=== PATIENT | female | born 1940 | race African-American/Black ===

== ENCOUNTER 2017-09-16 10:42 | Inpatient (IN) | payer MEDICARE, OTHER ==
[~2017-09-16] VITALS: Ht 157.5 cm; Wt 48.8 kg
[2017-09-16] VITALS (8 sets, daily range): BP systolic 114–144; BP diastolic 65–85
[~2017-09-16 10:42] MED LIST: FAMO40TA7 PO
[2017-09-16 12:10] LABS: CLARITY URINE TURBID (CLEAR); COLOR URINE YELLOW (YELLOW); KETONES URINE NEGATIVE (NEGATIVE); LEUKOCYTE ESTERASE URINE 3+ (NEGATIVE); NITRITE URINE POSITIVE (NEGATIVE); OCCULT BLOOD URINE 2+ (NEGATIVE); PH URINE 5.5 (4.5-8.0); PROTEIN URINE 1+ (NEGATIVE); SPECIFIC GRAVITY URINE 1.019 (1.005-1.030)
[2017-09-16 12:13] LABS: BASOPHILS % 0.2 % (0.0-2.0); EOSINOPHILS % 0.3 % (0.0-5.0); HEMATOCRIT. 21.2 % (36.0-48.0); MEAN CORPUSCULAR HEMOGLOBIN 26.7 pg (28.0-32.0); MEAN CORPUSCULAR VOLUME 80.6 fL (81.0-99.0); MEAN PLATELET VOLUME 7.4 fl (7.4-10.4); MONOCYTES % 6.7 % (2.0-8.0); NEUTROPHILS % 83.8 % (40.0-76.0); PLATELET 355 x1000/uL (130-400); RED BLOOD CELL COUNT 2.63 mill/uL (4.2-5.4); RED CELL DISTRIBUTION WIDTH 19.4 % (11.6-14.6)
[2017-09-16 12:14] LABS: CHLORIDE 108 mEq/L (98-107)
[2017-09-16] MEDS ORDERED: POTASSIUM CHLORIDE 20MEQ TABLET SR PO ONE (13:15)
[2017-09-16] MEDS ORDERED: CEFTRIAXONE 1 G PREMIX 50 ML IV ONE (13:15)
[2017-09-16] MEDS ORDERED: HYDROCODONE/ACETAMINOPHEN 5/325MG TABLET PO PRN (15:30)
[2017-09-16] MEDS ORDERED: CLONIDINE 0.1MG TABLET PO PRN (15:30)
[2017-09-16] MEDS ORDERED: DIPHENHYDRAMINE 50MG/ML VIAL IV PRN (15:30)
[2017-09-16] MEDS ORDERED: ONDANSETRON HCL 4MG/2ML VIAL IV PRN (15:30)
[2017-09-16] MEDS ORDERED: IPRATROPIUM/ALBUTEROL 0.5-3(2.5)MG/3ML NEB INH PRN (15:30)
[2017-09-16] MEDS ORDERED: ACETAMINOPHEN 325MG TABLET PO PRN (15:30)
[2017-09-16 15:57] LABS: PHOSPHORUS 2.1 mg/dL (2.5-4.9)
[2017-09-16] MEDS ORDERED: POTASSIUM CHLORIDE 20MEQ TABLET SR PO NR (16:14)
[2017-09-16] MEDS ORDERED: DORZ10DR9 LEFTEYE (18:51)
[2017-09-16] MEDS ORDERED: OMEP20TA2 PO (18:51)
[2017-09-16] MEDS ORDERED: KETO5DRO80 EACHEYE (18:51)
[2017-09-16] MEDS ORDERED: LEVOFLOXACIN 500MG PREMIX 100 ML IV NR (19:00)
[2017-09-16] MEDS ORDERED: NICOTINE 21MG PATCH TD NR (19:00)
[2017-09-16] MEDS ORDERED: POTASSIUM PHOS,M-BASIC-D-BASIC 15 MMOL in DEXT 5% WATER 245 ML IV NR (19:30)
[2017-09-16] MEDS: DORZOLAM/TIMOLOL 2.23/0.68% OPHTH DROPS 10ML LEFTEYE SCH (21:01)
[2017-09-16] MEDS: KETOROLAC TROMETHAMINE 0.4% OPHTH 5ML EACHEYE SCH (21:03)
[2017-09-16 23:10] LABS: HEMATOCRIT 24.9 % (36.0-48.0); HEMOGLOBIN 8.2 g/dL (12.0-16.0)
[2017-09-16 23:18] LABS: INR 1.1; PROTHROMBIN TIME 11.6 sec (9.4-11.6)
[2017-09-17] VITALS: BP 116/65
[2017-09-17 04:00] VITALS: BP 115/69
[2017-09-17] MEDS: OMEPRAZOLE 20MG CAPSULE EXTENDED RELEASE PO SCH (06:18)
[2017-09-17 07:38] LABS: CHLORIDE 108 mEq/L (98-107)
[2017-09-17 07:43] VITALS: BP 125/75
[2017-09-17 07:47] LABS: HDL CHOLESTEROL 36 mg/dL (40-59); LDL CHOLESTEROL 70 mg/dL (5-100)
[2017-09-17] MEDS ORDERED: SODIUM BICARBONATE 4% (2.4MEQ) 5ML VIAL IV ONE (08:06)
[2017-09-17 08:18] LABS: BASOPHILS % 0.1 % (0.0-2.0); EOSINOPHILS % 0.5 % (0.0-5.0); HEMATOCRIT. 26.1 % (36.0-48.0); HEMOGLOBIN. 8.7 g/dL (12.0-16.0); LYMPHOCYTES % 8.1 % (20.0-50.0); MEAN CORPUSCULAR HEMOGLOBIN 27.3 pg (28.0-32.0); MEAN CORPUSCULAR VOLUME 82.1 fL (81.0-99.0); MEAN PLATELET VOLUME 7.9 fl (7.4-10.4); MONOCYTES % 5.1 % (2.0-8.0); NEUTROPHILS % 86.2 % (40.0-76.0); PLATELET 347 x1000/uL (130-400); RED BLOOD CELL COUNT 3.19 mill/uL (4.2-5.4); RED CELL DISTRIBUTION WIDTH 17.6 % (11.6-14.6)
[2017-09-17] MEDS: DORZOLAM/TIMOLOL 2.23/0.68% OPHTH DROPS 10ML LEFTEYE SCH ×2 (08:38→17:54)
[2017-09-17] MEDS: NICOTINE 21MG PATCH TD SCH ×2 (08:38→17:54)
[2017-09-17] MEDS: KETOROLAC TROMETHAMINE 0.4% OPHTH 5ML EACHEYE SCH ×2 (08:38→17:54)
[2017-09-17] MEDS: POTASSIUM CHLORIDE 20MEQ TABLET SR PO SCH (10:52)
[2017-09-17] MEDS ORDERED: LEVOFLOXACIN 250MG TABLET PO SCH (11:00)
[2017-09-17 11:43] VITALS: BP 128/80
[2017-09-17 12:57] LABS: INR 1.1; PROTHROMBIN TIME 11.9 sec (9.4-11.6)
[2017-09-17] MEDS ORDERED: CEFTRIAXONE 1 G PREMIX 50 ML IV SCH (13:00)
[2017-09-17 15:44] VITALS: BP 127/67
[2017-09-17] MEDS: LEVOFLOXACIN 250MG PREMIX 50 ML IV SCH (17:54)
[2017-09-17 20:02] VITALS: BP 115/71
[2017-09-18 00:05] VITALS: BP 109/67
[2017-09-18 04:00] VITALS: BP 113/68
[2017-09-18] MEDS: OMEPRAZOLE 20MG CAPSULE EXTENDED RELEASE PO SCH (06:30)
[2017-09-18 07:21] VITALS: BP 122/74
[2017-09-18 07:31] LABS: HEMATOCRIT. 26.2 % (36.0-48.0); HEMOGLOBIN. 8.7 g/dL (12.0-16.0); MEAN CORPUSCULAR HEMOGLOBIN 27.2 pg (28.0-32.0); MEAN CORPUSCULAR VOLUME 81.6 fL (81.0-99.0); MEAN PLATELET VOLUME 7.9 fl (7.4-10.4); PLATELET 332 x1000/uL (130-400); RED BLOOD CELL COUNT 3.21 mill/uL (4.2-5.4); RED CELL DISTRIBUTION WIDTH 18.5 % (11.6-14.6)
[2017-09-18 08:39] LABS: CHLORIDE 110 mEq/L (98-107); PHOSPHORUS 2.8 mg/dL (2.5-4.9)
[2017-09-18] MEDS: KETOROLAC TROMETHAMINE 0.4% OPHTH 5ML LEFTEYE SCH ×2 (10:03→17:33)
[2017-09-18] MEDS: POTASSIUM CHLORIDE 20MEQ TABLET SR PO SCH (10:03)
[2017-09-18] MEDS: NICOTINE 21MG PATCH TD SCH (10:04)
[2017-09-18] MEDS: DORZOLAM/TIMOLOL 2.23/0.68% OPHTH DROPS 10ML LEFTEYE SCH ×2 (10:04→17:32)
[2017-09-18 11:37] VITALS: BP 122/76
[2017-09-18 14:11] LABS: PLATELET ESTIMATE NORMAL
[2017-09-18] MEDS ORDERED: CEFTRIAXONE 1 G PREMIX 50 ML IV SCH (15:00)
[2017-09-18 16:00] VITALS: BP 126/80
[2017-09-18] MEDS: LEVOFLOXACIN 250MG PREMIX 50 ML IV SCH (17:32)
[2017-09-18 20:00] VITALS: BP 100/63
[2017-09-18] MEDS ORDERED: POTASSIUM CHLORIDE 20MEQ TABLET SR PO SCH (21:00)
[2017-09-19 00:24] VITALS: BP 119/72
[2017-09-19 04:00] VITALS: BP 128/78
[2017-09-19] MEDS: OMEPRAZOLE 20MG CAPSULE EXTENDED RELEASE PO SCH (06:30)
[2017-09-19 07:42] LABS: BASOPHILS % 0.3 % (0.0-2.0); EOSINOPHILS % 0.7 % (0.0-5.0); HEMATOCRIT. 26.7 % (36.0-48.0); HEMOGLOBIN. 8.7 g/dL (12.0-16.0); LYMPHOCYTES % 14.3 % (20.0-50.0); MEAN CORPUSCULAR HEMOGLOBIN 26.9 pg (28.0-32.0); MEAN CORPUSCULAR VOLUME 82.6 fL (81.0-99.0); MEAN PLATELET VOLUME 7.5 fl (7.4-10.4); MONOCYTES % 11.2 % (2.0-8.0); NEUTROPHILS % 73.5 % (40.0-76.0); PLATELET 346 x1000/uL (130-400); RED BLOOD CELL COUNT 3.23 mill/uL (4.2-5.4); RED CELL DISTRIBUTION WIDTH 18.7 % (11.6-14.6)
[2017-09-19] MEDS ORDERED: DIATR MEGLU/DIATRIZOATE SOLN 30ML PO SCH (08:45)
[2017-09-19 08:49] LABS: CHLORIDE 112 mEq/L (98-107)
[2017-09-19 08:54] LABS: PHOSPHORUS 2.1 mg/dL (2.5-4.9)
[2017-09-19] MEDS: NICOTINE 21MG PATCH TD SCH (09:27)
[2017-09-19] MEDS: DORZOLAM/TIMOLOL 2.23/0.68% OPHTH DROPS 10ML LEFTEYE SCH (09:28)
[2017-09-19] MEDS: KETOROLAC TROMETHAMINE 0.4% OPHTH 5ML LEFTEYE SCH (09:28)
[2017-09-19] MEDS ORDERED: SODIUM PHOS,M-BASIC-D-BASIC 15 MM in DEXT 5% WATER 245 ML IV NR (10:30)
[2017-09-19 12:00] VITALS: BP 132/81
[2017-09-19] MEDS ORDERED: CEFTRIAXONE 1 G PREMIX 50 ML IV SCH (16:00)
[2017-09-19 16:51] VITALS: BP 132/81
[2017-09-20] MEDS ORDERED: POTASSIUM CHLORIDE 20MEQ TABLET SR PO SCH (09:00)
== END 2017-09-19 17:52 | disposition home or self-care (01) | DRG 871 ==
LOC: ER 13:11 → 6WST 13:12 → EDBEDREQ 13:15 → ENRESERV 15:26 → 6WST 16:47
PROVIDERS: ADMIT Internal Medicine; ATTEND Internal Medicine
PROC: 0WB83ZX Excision of Chest Wall, Percutaneous Approach, Diagnostic (ICD-10-PCS; principal; 2017-09-16)
PROC: 30233N1 Transfusion of Nonautologous Red Blood Cells into Peripheral Vein, Percutaneous Approach (ICD-10-PCS; 2017-09-16)
DX: A41.9 Sepsis, unspecified organism (principal); E43 Unspecified severe protein-calorie malnutrition; C78.00 Secondary malignant neoplasm of unspecified lung; D68.59 Other primary thrombophilia; C79.71 Secondary malignant neoplasm of right adrenal gland; E83.39 Other disorders of phosphorus metabolism; C80.1 Malignant (primary) neoplasm, unspecified; N39.0 Urinary tract infection, site not specified; Z68.1 Body mass index [BMI] 19.9 or less, adult; F17.210 Nicotine dependence, cigarettes, uncomplicated; R22.2 Localized swelling, mass and lump, trunk; D50.9 Iron deficiency anemia, unspecified; E87.6 Hypokalemia; I10 Essential (primary) hypertension; B96.20 Unspecified Escherichia coli [E. coli] as the cause of diseases classified elsewhere; Z90.710 Acquired absence of both cervix and uterus; Z80.8 Family history of malignant neoplasm of other organs or systems; Z80.3 Family history of malignant neoplasm of breast; Z79.899 Other long term (current) drug therapy
CPT/HCPCS: 32405; 36415; 36430; 74176; 76700; 77012; 80048; 80053; 80061; 81003; 82105; 82270; 82378; 83690; 83735; 84100; 84484; 84702; 85014; 85018; 85025; 85049; 85384; 85610; 86301; 86304; 86850; 86900; 86920; 87040; 87070; 87075; 87077; 87086; 87102; 87116; 87186; 87205; 88305; 96365; 96366; 99291; J0696; J1956; J3490; J7040; J7050; J7060; J7620; P9016; Q9963

== ENCOUNTER 2017-12-17 10:20 | Inpatient (IN) | payer OTHER ==
[~2017-12-17] VITALS: Ht 157.5 cm; Wt 51.7 kg
[2017-12-17] VITALS (7 sets, daily range): BP systolic 94–131; BP diastolic 57–73
[~2017-12-17 10:20] MED LIST changes: +DORZ10DR9 LEFTEYE; +KETO5DRO80 EACHEYE; +OMEP20TA2 PO
[2017-12-17] MEDS ORDERED: SODIUM CHLORIDE 0.9% 1000ML BAG (SEPSIS BOLUS) IV ONE (10:45)
[2017-12-17 11:43] LABS: CLARITY URINE TURBID (CLEAR); COLOR URINE YELLOW (YELLOW); KETONES URINE TRACE (NEGATIVE); LEUKOCYTE ESTERASE URINE 3+ (NEGATIVE); NITRITE URINE NEGATIVE (NEGATIVE); OCCULT BLOOD URINE 3+ (NEGATIVE); PROTEIN URINE 1+ (NEGATIVE); SPECIFIC GRAVITY URINE 1.015 (1.005-1.030)
[2017-12-17 12:11] LABS: CHLORIDE 105 mEq/L (98-107)
[2017-12-17 12:16] LABS: MEAN CORPUSCULAR HEMOGLOBIN 22.3 pg (28.0-32.0); MEAN CORPUSCULAR VOLUME 70.3 fL (81.0-99.0); PLATELET 268 x1000/uL (130-400); RED BLOOD CELL COUNT 2.54 mill/uL (4.2-5.4)
[2017-12-17 12:27] LABS: HEMOGLOBIN. 5.7 g/dL (12.0-16.0)
[2017-12-17 12:28] LABS: HEMATOCRIT. 17.9 % (36.0-48.0)
[2017-12-17] MEDS ORDERED: ASPIRIN 600MG SUPP PR ONE (12:30)
[2017-12-17 12:55] LABS: NUCLEATED RED BLOOD CELLS 1 /100 WBC; PLATELET ESTIMATE NORMAL
[2017-12-17] MEDS ORDERED: PIPERACILLIN/TAZ 3.375G PREMIX 50 ML IV NR (13:12)
[2017-12-17] MEDS ORDERED: PIPERACILLIN/TAZOBACTAM 3.375GM/50ML PREMIX IV ONE (13:15)
[2017-12-17] MEDS ORDERED: PANTOPRAZOLE 80 MG in SODIUM CHLORIDE 0.9% 100 ML IV ONE ×2 (13:15→13:30)
[2017-12-17] MEDS ORDERED: PANTOPRAZOLE SODIUM 40 MG/VIAL IV ONE (13:15)
[2017-12-17] MEDS ORDERED: ONDANSETRON HCL 4MG/2ML VIAL IV PRN (15:00)
[2017-12-17] MEDS ORDERED: DOCUSATE SODIUM 100MG CAPSULE PO PRN (15:00)
[2017-12-17] MEDS ORDERED: ZOLPIDEM TARTRATE 5MG TABLET PO PRN (15:00)
[2017-12-17] MEDS ORDERED: TRAMADOL 50MG TABLET PO PRN (15:00)
[2017-12-17] MEDS ORDERED: MORPHINE SULFATE 4 MG/ML CPJ (NOT FOR IM USE) IV PRN (15:00)
[2017-12-17] MEDS ORDERED: DIPHENHYDRAMINE 50MG/ML VIAL IV PRN (15:00)
[2017-12-17] MEDS ORDERED: ACETAMINOPHEN 325MG TABLET PO PRN (15:00)
[2017-12-17] MEDS ORDERED: CLONIDINE 0.1MG TABLET PO PRN (15:00)
[2017-12-17] MEDS ORDERED: IPRATROPIUM/ALBUTEROL 0.5-3(2.5)MG/3ML NEB INH PRN (15:00)
[2017-12-17] MEDS ORDERED: MAGNESIUM/ALUMINUM HYDROXIDE/SIMETHICONE 30ML UDC PO PRN (15:00)
[2017-12-17] MEDS ORDERED: NA PHOS,M-B/NA PHOS,DI-BA ENEMA 118ML PR PRN (15:00)
[2017-12-17] MEDS ORDERED: GUAIFENESIN 200MG/10ML SUGAR FREE UDC PO PRN (15:00)
[2017-12-17] MEDS ORDERED: POTASSIUM CHLORIDE 20MEQ TABLET SR PO NR (18:00)
[2017-12-17] MEDS ORDERED: PANTOPRAZOLE 80 MG in SODIUM CHLORIDE 0.9% 100 ML IV SCH (18:00)
[2017-12-17] MEDS: DEXT 5%/0.45% NACL 1000ML 1,000 ML IV SCH (18:47)
[2017-12-17] MEDS ORDERED: LORAZEPAM 2MG/ML CPJ IV PRN (19:45)
[2017-12-17] MEDS: PANTOPRAZOLE 80 MG in SODIUM CHLORIDE 0.9% 100 ML IV SCH (19:57)
[2017-12-17] MEDS ORDERED: CEFTRIAXONE 1 G PREMIX 50 ML IV SCH (20:00)
[2017-12-17 23:57] LABS: HEMATOCRIT 30.6 % (36.0-48.0); HEMOGLOBIN 9.8 g/dL (12.0-16.0)
[2017-12-18] VITALS (11 sets, daily range): BP systolic 83–121; BP diastolic 37–72
[2017-12-18] MEDS: DEXT 5%/0.45% NACL 1000ML 1,000 ML IV SCH ×2 (04:35→14:44)
[2017-12-18] MEDS: PANTOPRAZOLE 80 MG in SODIUM CHLORIDE 0.9% 100 ML IV SCH ×2 (06:45→15:00)
[2017-12-18 06:54] LABS: CLARITY URINE CLOUDY (CLEAR); COLOR URINE YELLOW (YELLOW); KETONES URINE NEGATIVE (NEGATIVE); LEUKOCYTE ESTERASE URINE 3+ (NEGATIVE); NITRITE URINE POSITIVE (NEGATIVE); OCCULT BLOOD URINE 2+ (NEGATIVE); PROTEIN URINE 1+ (NEGATIVE); SPECIFIC GRAVITY URINE 1.016 (1.005-1.030)
[2017-12-18] MEDS ORDERED: DIGOXIN 500MCG/2ML AMP IV NR ×2 (07:53→10:21)
[2017-12-18] MEDS ORDERED: SODIUM CHLORIDE 0.9% 250 ML IV ONE (08:00)
[2017-12-18 09:44] LABS: HEMATOCRIT. 28.8 % (36.0-48.0); HEMOGLOBIN. 9.3 g/dL (12.0-16.0); MEAN CORPUSCULAR HEMOGLOBIN 24.9 pg (28.0-32.0); MEAN CORPUSCULAR VOLUME 77.7 fL (81.0-99.0); MEAN PLATELET VOLUME 8.6 fl (7.4-10.4); PLATELET 87 x1000/uL (130-400); RED BLOOD CELL COUNT 3.71 mill/uL (4.2-5.4); RED CELL DISTRIBUTION WIDTH 21.1 % (11.6-14.6)
[2017-12-18 09:53] LABS: CHLORIDE 108 mEq/L (98-107)
[2017-12-18 10:01] LABS: HDL CHOLESTEROL 16 mg/dL (40-59); LDL CHOLESTEROL 29 mg/dL (5-100)
[2017-12-18 10:02] LABS: CREATINE KINASE 993 IU/L (26-192); CREATINE KINASE MB FRACTION 98.5 ng/mL (0.5-3.6)
[2017-12-18] MEDS ORDERED: SODIUM CHLORIDE 0.9% 500 ML IV SCH ×2 (10:15→12:15)
[2017-12-18] MEDS ORDERED: DILTIAZEM HCL 5MG/ML 5ML VIAL IV NR (10:15)
[2017-12-18] MEDS ORDERED: DILTIAZEM HCL 125 MG in DEXT 5% WATER 100 ML IV SCH (10:30)
[2017-12-18 12:30] LABS: NUCLEATED RED BLOOD CELLS 1 /100 WBC; PLATELET ESTIMATE DECREASED
== END 2017-12-18 19:45 | disposition hospice, home (50) | DRG 377 ==
LOC: ER 10:20 → 3WST 14:45 → EDBEDREQ 14:56 → EDBEDREQTM 14:56 → ENRESERV 15:25 → 3WST 22:00
PROVIDERS: ADMIT Internal Medicine; ATTEND Internal Medicine
PROC: 30233N1 Transfusion of Nonautologous Red Blood Cells into Peripheral Vein, Percutaneous Approach (ICD-10-PCS; principal; 2017-12-17)
DX: K92.1 Melena (principal); E43 Unspecified severe protein-calorie malnutrition; I21.4 Non-ST elevation (NSTEMI) myocardial infarction; N17.0 Acute kidney failure with tubular necrosis; D62 Acute posthemorrhagic anemia; N39.0 Urinary tract infection, site not specified; R78.81 Bacteremia; C78.00 Secondary malignant neoplasm of unspecified lung; C78.6 Secondary malignant neoplasm of retroperitoneum and peritoneum; F17.210 Nicotine dependence, cigarettes, uncomplicated; E83.51 Hypocalcemia; E27.8 Other specified disorders of adrenal gland; D50.9 Iron deficiency anemia, unspecified; E87.6 Hypokalemia; H26.9 Unspecified cataract; N18.9 Chronic kidney disease, unspecified; B96.89 Other specified bacterial agents as the cause of diseases classified elsewhere; Z90.710 Acquired absence of both cervix and uterus; Z79.899 Other long term (current) drug therapy
CPT/HCPCS: 36415; 71045; 78580; 80053; 80061; 81003; 82550; 82553; 82962; 83605; 83735; 83880; 84145; 84484; 85014; 85018; 85025; 85379; 85610; 86850; 86900; 86920; 87040; 87077; 87086; 87186; 93005; 93306; 96361; 96365; 96368; 96375; 99291; C9113; J0696; J1160; J1200; J2060; J2543; J3490; J7030; J7040; J7050; J7060; P9016; A4315